=== PATIENT | male | born 1935 | race Caucasian/White ===

== ENCOUNTER 2017-01-27 06:28 | Day surgery (SDC) | payer OTHER ==
[2017-01-22 10:04] LABS: BASOPHILS 0.3 %; BASOPHILS ABSOLUTE 0.02 10/3/uL (0.0-0.16); EOSINOPHILS 4.7 %; EOSINOPHILS ABSOLUTE 0.31 10/3/uL (0.0-0.53); HEMATOCRIT 41.8 % (40.0-51.0); HEMOGLOBIN 13.2 g/dL (13.6-17.8); IMMATURE GRANULOCYTES 0.3 %; IMMATURE GRANULOCYTES ABSOLUTE 0.02 10/3/uL (0.0-0.11); LYMPHOCYTES 25.2 %; LYMPHOCYTES ABSOLUTE 1.68 10/3/uL (0.67-4.30); MEAN CORPUS HGB CONC 31.6 g/dL (32.0-36.0); MEAN CORPUSCULAR HEMOGLOB 29.5 pg (26.0-34.0); MEAN CORPUSCULAR VOLUME 93.3 fL (80-100); MEAN PLATELET VOLUME 10.3 fL (9.2-13.0); MONOCYTES 8.6 %; MONOCYTES ABSOLUTE 0.57 10/3/uL (0.21-1.20); NEUTROPHILS 60.9 %; NEUTROPHILS ABSOLUTE 4.06 10/3/uL (2.02-8.40); PLATELET COUNT 261 10/3/uL (150-400); RBC DISTRIBUTION WIDTH 15.7 % (12.0-16.0); RED CELL COUNT 4.48 10/6/uL (4.7-6.1); WHITE BLOOD CELLS 6.7 10/3/uL (4.5-10.5)
[2017-01-22 10:05] LABS: MANUAL DIFF NO %
[2017-01-22 10:07] LABS: INTERNATIONAL NORMAL RATI 4.9 UNITS (-)
[2017-01-22 10:12] LABS: PROTIME (NOT ORD) 45.1 SEC (12.0-14.5)
[2017-01-22 10:23] LABS: BUN (BLOOD UREA NITROGEN) 13 MG/DL (6-23); CALCIUM, SERUM 8.8 MG/DL (8.5-10.4); CHLORIDE, SERUM 106 MMOL/L (96-112); CO2 (CARBON DIOXIDE) 27 MMOL/L (24-34); CREATININE 0.94 MG/DL (0.70-1.30); GFR AFRICAN AMERICAN 88 ML/MIN (>=60); GFR NON AFRICAN AMERICAN 76 ML/MIN (>=60); GLUCOSE, SERUM 113 MG/DL (60-99); POTASSIUM, SERUM 4.5 MMOL/L (3.5-5.3); SODIUM, SERUM 143 MMOL/L (135-148)
[2017-01-22 10:33] LABS: ASCORBIC ACID (UR NOT ORDER) NEG (NEG); BILIRUBIN, URINE NEGATIVE (NEG); KETONE, URINE NEGATIVE (NEG); LEUKOCYTE ESTERASE(NOT OR TRACE (NEG); WBC (NOT ORDERED) (RFLEX) 2 (0-5)
--- NOTE | ~2017-01-27 | OP ---
Record Of Operation [facility] [address] [place]. [address] NAME: EVELYN BERNSTEIN : 37 STATUS : [facility]#: [id number] AGE: 81 ADM/REG DATE : 01/27/17 MR#: [id number] REPORT SERV DATE: 03/18/17 DICTATED BY: GOPI EUBANKS DATE: 03/18/17 REPORT STATUS : Draft TRANSCRIBED BY: VI DATE: 03/18/17 DATE OF PROCEDURE: 01/27/2017 PRODUCT MANAGER: Nate White. PREOPERATIVE DIAGNOSIS: Retained foreign body of the sternum. POSTOPERATIVE DIAGNOSIS: Retained foreign body of the sternum. OPERATION/PROCEDURE PERFORMED: Sternal wire removal. COMPLICATIONS: None. ESTIMATED BLOOD LOSS: Minimal. SPECIMEN RECEIVED: Sternal wire. INDICATIONS FOR PROCEDURE: Mr. Bernstein is an 81-year-old gentleman who has previously undergone coronary artery bypass grafting. He presented to the office with his while she was in need of a TAVR. He complained during her office visit about an extremely painful sternal problem that rendered him unable to wear a seatbelt and hampered him through some of his daily activities. Sternum was palpated and there was extremely painful almost protruding sternal wire. The patient was consented for the procedure. Risks, benefits, and alternatives were discussed including but not limited to, bleeding, infection, stroke, , heart attack, need for future operations. All questions were answered. DETAILS OF PROCEDURE: The patient was brought to the operating room, placed supine on the operating room table. After satisfactory induction of general endotracheal anesthesia, he was prepped and draped in usual sterile fashion. A local anesthetic was infiltrated around the wire, which had been marked by the patient in preop. A small incision was made over the wire, and using electric cautery, the incision was deepened down to the wire. The wire was able to be dissected out. The wire was grasped, cut, and then removed. The area was re- infiltrated with local. Hemostasis was obtained and then closed. The wound was closed with 0 Vicryl, 2-0 Vicryl, 4-0 Monocryl. Dry sterile dressing was placed. He was extubated and transferred to the PACU in stable condition. ANTONIO/VI Gopi Eubanks MD / [id number] CC: Record Of Operation [facility] [address] [place]. [address] NAME: EVELYN BERNSTEIN : 37 STATUS : [facility] PAT#: [id number] AGE: 81 ADM/REG DATE : 01/27/17 MR#: [id number] REPORT SERV DATE: 03/18/17 DICTATED BY: GOPI EUBANKS DATE: 03/18/17 REPORT STATUS : Draft TRANSCRIBED BY: VI DATE: 03/18/17 MD Say Daniel M.D.
[~2017-01-27 06:28] MED LIST: ALEVE220 MG PO; ASAB PO; BETAPACE80 PO; C5 PO; CELEXA10 PO; COREG3 PO; COUMADIN3 MG PO; GLUCPH PO; L20 PO; LAN125 PO; LOFIBRA54 MG PO; LOPID6 PO; LOTE5 PO; PRAVACHOL40 MG PO; PROSCAR5 PO; Z300 PO
[2017-01-27 07:05] LABS: INTERNATIONAL NORMAL RATI 1.2 UNITS (-); PROTIME (NOT ORD) 14.8 SEC (12.0-14.5)
[2017-05-31] MEDS ORDERED: EFFEXOR XR150 MG PO (13:41)
[2017-05-31] MEDS ORDERED: Z300 PO (13:51)
[2017-05-31] MEDS ORDERED: LAN125 PO (13:52)
[2017-05-31] MEDS ORDERED: L20 PO (13:53)
[2017-05-31] MEDS ORDERED: BETAPACE80 PO (13:53)
[2017-05-31] MEDS ORDERED: COREG3 PO (13:54)
[2017-05-31] MEDS ORDERED: LOPID6 PO (13:54)
[2017-05-31] MEDS ORDERED: PRAVACHOL40 MG PO (13:55)
[2017-05-31] MEDS ORDERED: LOTE5 PO (13:55)
[2017-05-31] MEDS ORDERED: SEROQUEL1C PO (13:56)
[2017-05-31] MEDS ORDERED: COUMADIN3 MG PO (13:57)
[2017-05-31] MEDS ORDERED: C5 PO (13:57)
[2017-05-31] MEDS ORDERED: CLINDA150 PO (13:58)
[2017-05-31] MEDS ORDERED: B121000P IM (13:58)
== END 2017-01-27 11:16 | disposition home or self-care (01) ==
LOC: SDC 06:28
PROVIDERS: Thoracic Surgery (Cardiothoracic Vascular Surgery)
PROC: 0PC00ZZ Extirpation of Matter from Sternum, Open Approach (ICD-10-PCS; principal; 2017-01-27 07:45)
DX: T85.9XXA Unspecified complication of internal prosthetic device, implant and graft, initial encounter (principal); Z95.1 Presence of aortocoronary bypass graft; I10 Essential (primary) hypertension; E78.5 Hyperlipidemia, unspecified; I25.10 Atherosclerotic heart disease of native coronary artery without angina pectoris; I48.0 Paroxysmal atrial fibrillation; Z86.73 Personal history of transient ischemic attack (TIA), and cerebral infarction without residual deficits; Z85.038 Personal history of other malignant neoplasm of large intestine; Z79.01 Long term (current) use of anticoagulants; I65.29 Occlusion and stenosis of unspecified carotid artery
CPT/HCPCS: 71010; 80048; 81001; 85025; 85610; 93005; J0690; J2795; J3010